=== PATIENT | male | born 1955 | race Caucasian/White ===

== ENCOUNTER 2020-05-21 10:30 | Observation (INO) ==
[~2020-05-21 10:30] MED LIST: Buffered Lidocaine 1% SYRIN 1 ml INTRADERM ONE; Lactated Ringers 1000 ml BAG 1,000 ML IV SCH
[2020-06-11] MEDS ORDERED: Famotidine IV 10 MG/ML 2 ml VIAL (20 mg) IV ONE (06:00)
[2020-06-11] MEDS ORDERED: Lactated Ringers 1000 ml BAG 1,000 ML IV SCH ×2 (06:00→11:00)
[2020-06-11] MEDS ORDERED: Buffered Lidocaine 1% SYRIN 1 ml INTRADERM ONE ×2 (06:00→06:12)
[2020-06-11] MEDS ORDERED: Dexamethasone IV 4 MG/ML VIAL 1 ml VIAL ONE (06:11)
[2020-06-11] MEDS ORDERED: ceFAZolin 2 GM PREMIX 2 GM/50 ML BAG ONE (06:11)
[2020-06-11] MEDS ORDERED: Famotidine IV 10 MG/ML 2 ml VIAL (20 mg) ONE (06:12)
[2020-06-11] MEDS: Dexamethasone IV 4 MG/ML VIAL 1 ml VIAL IV SLOW PU ONE ×2 (06:38→07:19)
[2020-06-11] MEDS ORDERED: Dextrose 50% Syringe 50 ml 25 GM/50 ML SYRINGE IV PUSH PRN ×2 (06:59→13:28)
[2020-06-11] MEDS ORDERED: fentaNYL 100 mcg/2 ml 50 MCG/ML VIAL ONE (07:01)
[2020-06-11] MEDS ORDERED: Midazolam 2 mg/2 ml VIAL 1 mg/ml 2 ml VIAL (2 mg) ONE (07:01)
[2020-06-11] MEDS ORDERED: Rocuronium 50 mg VIAL 10 mg/ml 5 ml VIAL (50 mg) ONE ×2 (07:01→08:30)
[2020-06-11] MEDS ORDERED: Lidocaine 2% PF 5 ML VIAL ONE (07:02)
[2020-06-11] MEDS ORDERED: Ondansetron 4 mg VIAL 2 MG/ML 2 ml VIAL ONE (07:02)
[2020-06-11] MEDS ORDERED: Propofol 10 MG/ML 20 ML BTL ONE (07:02)
[2020-06-11] MEDS ORDERED: Phenylephrine IV 10 MG/ML 1 ml VIAL ONE (07:02)
[2020-06-11] MEDS ORDERED: Glycopyrrolate IV 0.2 MG/ML 1 ML VIAL ONE ×2 (07:13→08:22)
[2020-06-11] MEDS ORDERED: ROPIVACAINE 5 MG/ML 30 ML BTL (0.5%) ONE (07:21)
[2020-06-11] MEDS ORDERED: EPHEDrine (Pressors) 50 MG/ML VIAL ONE (08:19)
[2020-06-11] MEDS ORDERED: Naloxone 0.4 mg VIAL 0.4 mg/ml 1 ml VIAL IV PRN (08:41)
[2020-06-11] MEDS ORDERED: HYDROcodone/ACETAMIN 5/325 mg TAB PO PRN (08:41)
[2020-06-11] MEDS ORDERED: fentaNYL 100 mcg/2 ml 50 MCG/ML VIAL IV PRN (08:41)
[2020-06-11] MEDS ORDERED: Prochlorperazine 5 mg/ml 2 ml VIAL (10 mg) IV PRN (08:41)
[2020-06-11] MEDS ORDERED: Vancomycin 1,000 MG VIAL ONE (09:48)
[2020-06-11] MEDS ORDERED: oxyCODONE/Acetamin 5/325 mg TAB PO PRN (10:48)
[2020-06-11] MEDS ORDERED: Morphine 2 MG/ML SYRINGE IV PRN (10:48)
[2020-06-11] MEDS ORDERED: diPHENhydraMINE IV 50 MG/ML 1 ml VIAL (BENADRYL) IV PRN (10:48)
[2020-06-11] MEDS ORDERED: Lactulose 30 ml UDC PO PRN (10:48)
[2020-06-11] MEDS ORDERED: diPHENhydraMINE 25 mg TAB PO PRN (10:48)
[2020-06-11] MEDS ORDERED: Magnesium Hydroxide LIQ 30 ML UDC PO PRN (10:48)
[2020-06-11] MEDS ORDERED: Ondansetron 4 mg VIAL 2 MG/ML 2 ml VIAL IV PRN (10:48)
[2020-06-11] MEDS ORDERED: Ondansetron ODT 4 mg TAB 4 MG TAB PO PRN (10:48)
[2020-06-11] MEDS ORDERED: oxyCODONE/Acetamin 5/325 mg TAB ONE (11:17)
[2020-06-11] MEDS: oxyCODONE/Acetamin 5/325 mg TAB PO PRN ×2 (11:18→11:20)
[2020-06-11] MEDS ORDERED: ceFAZolin 1 GM ADVAN 1 GM in NS 0.9% 50 ML 50 ML IVPB SCH (16:00)
[2020-06-11 18:03] VITALS: BP 143/90
[2020-06-11] MEDS ORDERED: Magnesium Hydroxide LIQ 30 ML UDC PO SCH (21:00)
[2020-06-12] MEDS ORDERED: Vitamin THERAPEUTIC TAB PO SCH (09:00)
[2020-06-12] MEDS ORDERED: CMCS: SitaGLIPtin 100 mg TAB (NF) PO SCH (09:00)
[2020-06-12] MEDS ORDERED: Enoxaparin 40 MG/0.4 ML SYR SUBCUT SCH (12:00)
== END 2020-06-11 19:20 | disposition home or self-care (01) ==
LOC: AA 06-11 05:52 → INTOOBSV 06-11 05:52 → SSU 06-11 11:41
PROVIDERS: ADMIT Orthopaedic Surgery; ATTEND Orthopaedic Surgery

== ENCOUNTER 2021-02-25 05:44 | Inpatient (IN) ==
[2021-02-25] MEDS ORDERED: Buffered Lidocaine 1% SYRIN 1 ml INTRADERM ONE (06:00)
[2021-02-25] MEDS ORDERED: ceFAZolin 2 GM PREMIX 2 GM/50 ML BAG ONE (06:54)
[2021-02-25] MEDS ORDERED: Lidocaine 1% w EPI 1:200,000 SDV 30 ML VIAL ONE (07:06)
[2021-02-25] MEDS ORDERED: Vancomycin 1,000 MG VIAL ONE (07:07)
[2021-02-25] MEDS ORDERED: Bupivacaine 0.5% SDV PF 30ML VIAL ONE (07:07)
[2021-02-25] MEDS ORDERED: Famotidine IV 10 MG/ML 2 ml VIAL (20 mg) ONE (07:35)
[2021-02-25] MEDS ORDERED: Midazolam 5 mg/5 ml VIAL 1 mg/ml 5 ml VIAL (5 mg) ONE (07:38)
[2021-02-25] MEDS ORDERED: Lidocaine 2% PF 5 ML VIAL ONE ×2 (07:40→07:45)
[2021-02-25] MEDS ORDERED: Propofol 10 MG/ML 20 ML BTL ONE ×2 (07:45→08:04)
[2021-02-25] MEDS ORDERED: Ondansetron 4 mg VIAL 2 MG/ML 2 ml VIAL ONE (07:45)
[2021-02-25] MEDS ORDERED: fentaNYL 100 mcg/2 ml 50 MCG/ML VIAL ONE ×3 (07:46→11:09)
[2021-02-25] MEDS ORDERED: Rocuronium 50 mg VIAL 10 mg/ml 5 ml VIAL (50 mg) ONE (07:51)
[2021-02-25] MEDS ORDERED: Phenylephrine 40 mcg/mL 10mL (400mcg) SYRINGE ONE (08:04)
[2021-02-25] MEDS ORDERED: Dexmedetomidine 200 mcg/2 ml 2 ml VIAL (200 mcg) ONE (08:13)
[2021-02-25] MEDS ORDERED: HYDROmorphone 0.5 MG/0.5 ML SYRINGE ONE (08:29)
[2021-02-25] MEDS ORDERED: Acetaminophen IV 1 GM/100ML 100 ML IV ONE (08:32)
[2021-02-25] MEDS ORDERED: Ondansetron 4 mg VIAL 2 MG/ML 2 ml VIAL IV PRN ×2 (08:44→09:59)
[2021-02-25] MEDS ORDERED: DiMENhydriNATE IV 50 mg/ml 1 ml VIAL IV PUSH PRN (08:44)
[2021-02-25] MEDS ORDERED: Naloxone 0.4 mg VIAL 0.4 mg/ml 1 ml VIAL IV PRN (08:44)
[2021-02-25] MEDS ORDERED: diPHENhydraMINE 25 mg TAB PO PRN (09:59)
[2021-02-25] MEDS ORDERED: Ondansetron ODT 4 mg TAB 4 MG TAB PO PRN (09:59)
[2021-02-25] MEDS ORDERED: diPHENhydraMINE IV 50 MG/ML 1 ml VIAL (BENADRYL) IV PRN (09:59)
[2021-02-25] MEDS ORDERED: Lactulose 30 ml UDC PO PRN (09:59)
[2021-02-25] MEDS ORDERED: Morphine 2 MG/ML SYRINGE IV PRN (09:59)
[2021-02-25] MEDS ORDERED: Magnesium Hydroxide LIQ 30 ML UDC PO PRN (09:59)
[2021-02-25] MEDS ORDERED: Lactated Ringers 1000 ml BAG 1,000 ML IV SCH (10:00)
[2021-02-25] MEDS ORDERED: HYDROmorphone 1 MG/1 ML SYRINGE ONE (10:06)
[2021-02-25] MEDS: HYDROmorphone 1 MG/1 ML SYRINGE IV PRN ×2 (10:15→10:44)
[2021-02-25] MEDS ORDERED: Dextrose 50% Syringe 50 ml 25 GM/50 ML SYRINGE IV PUSH PRN (10:50)
[2021-02-25] MEDS: fentaNYL 100 mcg/2 ml 50 MCG/ML VIAL IV PRN ×4 (10:51→11:19)
[2021-02-25] MEDS: Lactated Ringers 1000 ml BAG 1,000 ML IV SCH ×2 (12:10→21:51)
[2021-02-25] MEDS: ceFAZolin 1 GM ADVAN 1 GM in NS 0.9% 50 ML 50 ML IVPB SCH ×2 (15:41→23:42)
[2021-02-25] MEDS ORDERED: GLIPIZIDE 10 MG PO SCH (21:00)
[2021-02-25] MEDS: Magnesium Hydroxide LIQ 30 ML UDC PO SCH (21:56)
[2021-02-26 06:02] LABS: Hematocrit 24 % (42-52); Hemoglobin 7.6 g/dL (14.0-18.0); Mean Platelet Volume 8.7 fL (7.4-10.4); Platelet Count 116 10^3/uL (150-450)
[2021-02-26] MEDS: Lactated Ringers 1000 ml BAG 1,000 ML IV SCH (06:20)
[2021-02-26 07:48] LABS: Potassium 4.1 mmol/L (3.5-5.0); eGFR CKD-EPI 60.8 (>60)
[2021-02-26 07:49] LABS: Calcium 8.1 mg/dL (8.6-10.3)
[2021-02-26] MEDS: Vitamin THERAPEUTIC TAB PO SCH ×2 (08:08→08:18)
[2021-02-26] MEDS: Magnesium Hydroxide LIQ 30 ML UDC PO SCH (08:08)
[2021-02-26] MEDS: ceFAZolin 1 GM ADVAN 1 GM in NS 0.9% 50 ML 50 ML IVPB SCH (08:12)
[2021-02-26] MEDS ORDERED: SitaGLIPtin 100 mg TAB (NF) PO SCH (09:00)
[2021-02-26 11:33] VITALS: BP 117/72
== END 2021-02-26 14:40 | disposition home or self-care (01) | DRG 301 ==
LOC: AA 05:44 → SSU 11:48
PROVIDERS: ADMIT Orthopaedic Surgery; ATTEND Orthopaedic Surgery